=== PATIENT | female | born 1985 | race Asian ===

== ENCOUNTER 2019-10-04 17:40 | Emergency (ER) | payer OTHER ==
[~2019-10-04] VITALS: Ht 152.4 cm; Wt 44.0 kg
[2019-10-04 19:30] VITALS: Ht 152.4 cm; Wt 44.0 kg
[2019-10-04 19:50] LABS: microscopic required? NO
[2019-10-04 19:56] LABS: UA SPECIFIC GRAVITY >=1.030 (1.005-1.035); urine erythrocyte NEGATIVE (NEGATIVE)
[2019-10-04 20:26] VITALS: BP 111/60
== END 2019-10-04 20:26 | disposition home or self-care (01) ==
LOC: ED 17:40
PROVIDERS: Emergency Medicine
DX: J11.1 Influenza due to unidentified influenza virus with other respiratory manifestations (principal)
CPT/HCPCS: 87804